=== PATIENT | female | born 1995 | race Two or more races ===

== ENCOUNTER 2019-06-12 18:27 | Inpatient (IN) | payer MEDICAID ==
[~2019-06-12] VITALS: Ht 152.4 cm; Wt 80.3 kg
[2019-06-13] VITALS (16 sets, daily range): BP systolic 131–166; BP diastolic 60–111
[2019-06-13] MEDS ORDERED: HALOPERIDOL 5 MG TABLET PO PRN
[2019-06-13] MEDS ORDERED: INFLUENZA VIRUS VACCINE QVS 2019-20 (3YR+)/PF 60 MCG/0.5 ML SYRINGE IM ONE (01:15)
[2019-06-13] MEDS: LORazepam 2 MG TABLET PO PRN ×2 (01:41→13:15)
[2019-06-13] MEDS: CEPHALEXIN MONOHYDRATE 500 MG CAPSULE PO SCH ×3 (08:26→18:39)
[2019-06-13] MEDS ORDERED: ALBUTEROL SULFATE HFA 90 MCG/PUFF 8 GM INHALER IH PRN (08:30)
[2019-06-13] MEDS ORDERED: MAG HYDROX/AL HYDROX/SIMETH ES 30 ML SUSPENSION UDCUP PO PRN (08:30)
[2019-06-13] MEDS ORDERED: PETROLATUM,WHITE 28 GM JELLY TP PRN (08:30)
[2019-06-13] MEDS ORDERED: GuaiFENesin/D-METHORPHAN [SUGAR-FREE] 200-20MG/10 ML SYRUP UDCUP PO PRN (08:30)
[2019-06-13] MEDS ORDERED: LOPERAMIDE HCL 2 MG CAPSULE PO PRN (08:30)
[2019-06-13] MEDS ORDERED: MAGNESIUM HYDROXIDE SUSPENSION 30 ML UDCUP PO PRN (08:30)
[2019-06-13] MEDS ORDERED: IBUPROFEN 400 MG TABLET PO PRN (08:30)
[2019-06-13] MEDS ORDERED: NICOTINE 14 MG/24 HOUR PATCH TD PRN (08:30)
[2019-06-13] MEDS ORDERED: ACETAMINOPHEN 325 MG TABLET PO PRN (08:30)
[2019-06-13] MEDS ORDERED: DOCUSATE SODIUM 100 MG CAPSULE PO PRN (08:30)
[2019-06-13] MEDS ORDERED: ONDANSETRON HCL 4 MG TABLET PO PRN (08:30)
[2019-06-13] MEDS ORDERED: CloNIDine HCL 0.1 MG TABLET PO PRN (08:30)
[2019-06-13] MEDS: ARIPiprazole 10 MG TABLET PO SCH (10:00)
[2019-06-13] MEDS: CloNIDine HCL 0.1 MG TABLET PO PRN (13:03)
[2019-06-13 14:39] LABS: GLUCOMETER DEV NAME(LOC) BV3N.; GLUCOSE,POINT OF CARE 100 MG/DL (70-110)
[2019-06-13] MEDS ORDERED: ARIP10TA8 PO (15:29)
[2019-06-13] MEDS ORDERED: CEPH250S35 PO (15:29)
[2019-06-14] MEDS: LORazepam 2 MG TABLET PO PRN ×2 (01:37→19:36)
[2019-06-14 01:50] VITALS: BP 135/89
[2019-06-14 08:00] LABS: EOSINOPHILS % (AUTO) 0.4 % (1.0-6.0); HEMATOCRIT 44.1 % (36-46); HEMOGLOBIN 14.6 g/dL (12.0-16.0); LYMPHOCYTES # (AUTO) 1.9 K/uL (1.0-4.8); LYMPHOCYTES % (AUTO) 16.1 % (22.0-44.0); MEAN CORPUSCULAR HEMOGLOBIN 30.6 pg (26.0-34.0); MEAN CORPUSCULAR HGB CONC 33.1 G/dL (31.0-37.0); MEAN CORPUSCULAR VOLUME 92 fL (80-100); MONOCYTES # (AUTO) 0.7 K/uL (0.1-1.0); MONOCYTES % (AUTO) 6.4 % (2.0-9.0); NEUTROPHILS # (AUTO) 8.9 K/uL (1.8-7.7); NEUTROPHILS % (AUTO) 76.1 % (40.0-70.0); PLATELET COUNT (AUTO) 261 K/uL (150-450); RED BLOOD CELL COUNT(AUTO) 4.77 MIL/uL (4.00-5.20); RED CELL DISTRIBUTION WIDTH 13.6 % (11.5-14.5)
[2019-06-14 08:17] LABS: HEMOGLOBIN A1C 5.2 % (3.8-5.6)
[2019-06-14 08:20] VITALS: BP 148/102
[2019-06-14] MEDS: CEPHALEXIN MONOHYDRATE 500 MG CAPSULE PO SCH ×3 (08:30→16:54)
[2019-06-14 08:31] LABS: ALANINE AMINOTRANSFERASE 166 U/L (12-78); ALBUMIN 4.8 g/dL (3.4-5.0); ALKALINE PHOSPHATASE 84 U/L (46-116); ANION GAP 12 mmol/L (8-16); ASPARTATE AMINOTRANSFERASE 183 U/L (15-37); CALCIUM, TOTAL 9.6 mg/dL (8.8-10.5); CARBON DIOXIDE 25 mmol/L (22-29); CHLORIDE 101 mmol/L (98-107); CHOL/HDL RATIO 3.1 (3.9-5.7); CHOLESTEROL 151 mg/dL (131-200); CREATININE 0.81 mg/dL (0.60-1.30); GLOMERULAR FILTR. RATE CALC > 60 mL/min (>60); GLUCOSE,RANDOM 116 mg/dL (70-110); HCG,QUANTITATIVE < 1 mIU/mL (0-6); HDL CHOLESTEROL 48 mg/dL (40-60); LDL CHOL (CALC.) 89 mg/dL (0-130); POTASSIUM 3.4 mmol/L (3.5-5.1); SODIUM SERUM 138 mmol/L (136-145); THYROID STIMULATING HORMONE 0.99 uIU/mL (0.36-3.74); TOTAL PROTEIN, SERUM 8.5 g/dL (6.4-8.2); TRIGLYCERIDES 70 mg/dL (15-150); UREA NITROGEN, BLOOD 6 mg/dL (7-18)
[2019-06-14] MEDS: ARIPiprazole 10 MG TABLET PO SCH ×2 (08:36→09:53)
[2019-06-14] MEDS: CARVEDILOL 12.5 MG TABLET PO SCH (12:27)
[2019-06-14 16:21] VITALS: BP 137/79
[2019-06-14] MEDS ORDERED: POTASSIUM CHLORIDE 20 MEQ ER TABLET PO ONE (17:30)
[2019-06-15] MEDS: LORazepam 2 MG TABLET PO PRN (00:31)
[2019-06-15 04:07] VITALS: BP 135/97
[2019-06-15 08:10] VITALS: BP 138/94
[2019-06-15] MEDS: ARIPiprazole 10 MG TABLET PO SCH (08:30)
[2019-06-15] MEDS: CEPHALEXIN MONOHYDRATE 500 MG CAPSULE PO SCH ×3 (08:31→16:28)
[2019-06-15] MEDS: CARVEDILOL 12.5 MG TABLET PO SCH (08:31)
[2019-06-15 08:32] LABS: AMPHET/METH SCREEN,URINE NEGATIVE (NEGATIVE); BARBITURATE SCREEN, URINE NEGATIVE (NEGATIVE); BENZODIAZEPINES SCREEN,URINE NEGATIVE (NEGATIVE); CANNABINOID SCREEN,URINE POSITIVE (NEGATIVE); COCAINE SCREEN,URINE NEGATIVE (NEGATIVE); METHADONE SCREEN, URINE NEGATIVE (NEGATIVE); OPIATE SCREEN,URINE NEGATIVE (NEGATIVE)
[2019-06-15 08:33] LABS: PHENCYCLIDINE SCREEN,URINE NEGATIVE (NEGATIVE)
[2019-06-15] MEDS: CloNIDine HCL 0.1 MG TABLET PO PRN (16:31)
[2019-06-15 18:40] VITALS: BP 138/85
[2019-06-15] MEDS: ZOLPIDEM TARTRATE 10 MG TABLET PO PRN (22:46)
[2019-06-16 04:27] VITALS: BP 128/88
[2019-06-16 08:04] LABS: MAGNESIUM 2.1 mg/dL (1.80-2.40); POTASSIUM 3.6 mmol/L (3.5-5.1)
[2019-06-16 08:20] VITALS: BP 139/97
[2019-06-16] MEDS: ARIPiprazole 10 MG TABLET PO SCH (08:41)
[2019-06-16] MEDS: CEPHALEXIN MONOHYDRATE 500 MG CAPSULE PO SCH ×3 (08:41→16:24)
[2019-06-16] MEDS: CARVEDILOL 12.5 MG TABLET PO SCH (08:41)
[2019-06-16 16:13] VITALS: BP 132/88
[2019-06-16] MEDS: ZOLPIDEM TARTRATE 10 MG TABLET PO PRN (21:19)
[2019-06-17 05:05] VITALS: BP 141/88
[2019-06-17] MEDS: CARVEDILOL 12.5 MG TABLET PO SCH (08:16)
[2019-06-17] MEDS: ARIPiprazole 10 MG TABLET PO SCH (08:16)
[2019-06-17 08:17] VITALS: BP 140/92
[2019-06-17] MEDS ORDERED: ARIP10TA8 PO (11:06)
[2019-06-17] MEDS ORDERED: CARV12 PO (12:13)
== END 2019-06-17 13:20 | disposition home or self-care (01) | DRG 753 ==
LOC: B3A 23:13
DX: F31.2 Bipolar disorder, current episode manic severe with psychotic features (principal); R00.0 Tachycardia, unspecified; E87.6 Hypokalemia; F10.10 Alcohol abuse, uncomplicated; N39.0 Urinary tract infection, site not specified; R42 Dizziness and giddiness; Y90.9 Presence of alcohol in blood, level not specified; F41.9 Anxiety disorder, unspecified; R03.0 Elevated blood-pressure reading, without diagnosis of hypertension; Z79.899 Other long term (current) drug therapy; Z91.5 Personal history of self-harm; Z81.8 Family history of other mental and behavioral disorders; Z59.0 Homelessness; Z91.410 Personal history of adult physical and sexual abuse
CPT/HCPCS: 80307; 83036; 83735; 84132; 84439; 84443; 87081; Q0162

== ENCOUNTER 2019-06-13 15:16 | Emergency (ER) | payer MEDICAID, OTHER ==
[~2019-06-13] VITALS: Ht 154.9 cm; Wt 81.8 kg
[2019-06-13] MEDS ORDERED: CEPH250S35 PO (15:29)
[2019-06-13] MEDS ORDERED: ARIP10TA8 PO (15:29)
[2019-06-13] MEDS ORDERED: ONDANSETRON HCL 4 MG/2 ML VIAL IVP ONE (15:45)
[2019-06-13] MEDS ORDERED: LORazepam 2 MG/ML VIAL IVP ONE (15:45)
[2019-06-13] MEDS ORDERED: SODIUM CHLORIDE 0.9% 1,000 ML IV ONE (15:45)
[2019-06-13] MEDS ORDERED: KETOROLAC TROMETHAMINE 30 MG/ML VIAL IVP ONE (15:45)
[2019-06-13 16:03] LABS: BASOPHILS % (AUTO) 0.7 % (0.0-2.0); EOSINOPHILS % (AUTO) 0.3 % (1.0-6.0); HEMATOCRIT 44.5 % (36-46); HEMOGLOBIN 14.6 g/dL (12.0-16.0); LYMPHOCYTES # (AUTO) 2.7 K/uL (1.0-4.8); LYMPHOCYTES % (AUTO) 24.4 % (22.0-44.0); MEAN CORPUSCULAR HGB CONC 32.8 G/dL (31.0-37.0); MEAN CORPUSCULAR VOLUME 92 fL (80-100); MONOCYTES # (AUTO) 0.8 K/uL (0.1-1.0); MONOCYTES % (AUTO) 7.8 % (2.0-9.0); NEUTROPHILS # (AUTO) 7.3 K/uL (1.8-7.7); NEUTROPHILS % (AUTO) 66.8 % (40.0-70.0); PLATELET COUNT (AUTO) 248 K/uL (150-450); RED BLOOD CELL COUNT(AUTO) 4.86 MIL/uL (4.00-5.20); RED CELL DISTRIBUTION WIDTH 13.5 % (11.5-14.5)
[2019-06-13 16:20] VITALS: BP 138/103
[2019-06-13 16:21] LABS: ANION GAP 12 mmol/L (8-16); CALCIUM, TOTAL 9.8 mg/dL (8.8-10.5); CARBON DIOXIDE 26 mmol/L (22-29); CHLORIDE 102 mmol/L (98-107); CREATININE 0.69 mg/dL (0.60-1.30); GLOMERULAR FILTR. RATE CALC > 60 mL/min (>60); GLUCOSE,RANDOM 110 mg/dL (70-110); POTASSIUM 3.7 mmol/L (3.5-5.1); SODIUM SERUM 140 mmol/L (136-145); UREA NITROGEN, BLOOD 4 mg/dL (7-18)
[2019-06-13 16:26] LABS: ALANINE AMINOTRANSFERASE 160 U/L (12-78); ALBUMIN 4.6 g/dL (3.4-5.0); ALKALINE PHOSPHATASE 79 U/L (46-116); ASPARTATE AMINOTRANSFERASE 159 U/L (15-37); BILIRUBIN,TOTAL 0.7 mg/dL (0.1-1.0); LIPASE 83 U/L (73-393); TOTAL PROTEIN, SERUM 8.2 g/dL (6.4-8.2)
== END 2019-06-13 18:01 | disposition home or self-care (01) ==
LOC: EMS 15:18
DX: R10.84 Generalized abdominal pain (principal); M54.5 Low back pain; I10 Essential (primary) hypertension; R11.0 Nausea; F41.9 Anxiety disorder, unspecified; F31.9 Bipolar disorder, unspecified
CPT/HCPCS: 36415; 80053; 83690; 85025; 96374; 96375; 99285; J1885; J2060; J2405; J7030